=== PATIENT | male | born 1985 | race Caucasian/White ===

== ENCOUNTER 2021-11-06 21:04 | Emergency (ER) | payer OTHER ==
[2021-11-06] MEDS ORDERED: HYDROcod/ACET 5/325 Prepack 4 PO STA (21:26)
[2021-11-06] MEDS ORDERED: IBUPROFEN 800 MG TABLET PO STA (21:26)
--- NOTE | 2021-11-06 21:28 | ED Physician Documentation ---
PD HPI LOWER EXT INJURY - Stated complaint Stated Complaint: LT CALF INJ/POP - Chief complaint Chief Complaint: Ext Problem - History obtained from History obtained from: Patient - Additional information Additional information: 35-year-old gentleman was playing softball tonight. He started running towards for first base and felt a pop and now has severe pain in the medial left calf. No other injuries. He is able to walk and bear weight. Review of Systems Constitutional: reports: Reviewed and negative Eyes: reports: Reviewed and negative Ears: reports: Reviewed and negative Nose: reports: Reviewed and negative Cardiac: reports: Reviewed and negative Respiratory: reports: Reviewed and negative PD PAST MEDICAL HISTORY - Past Medical History Past Medical History: Yes Cardiovascular: None Respiratory: None Neuro: None Endocrine/Autoimmune: None GI: None : None HEENT: None Psych: None Musculoskeletal: None Derm: None - Past Surgical History Past Surgical History: Yes Ortho: Other - Present Medications Home Medications: Ambulatory Orders Medication Instructions Recorded Confirmed HYDROcod/ACETAM 5/325 [[place] 5/325] 1 - 2 tab PO Q6H PRN #10 tablet 11/06/21 Ibuprofen [Motrin] 800 mg PO Q8H PRN #14 tablet 11/06/21 - Allergies Allergies/Adverse Reactions: Allergies Allergy/AdvReac Type Severity Reaction Status Date / Time amoxicillin AdvReac Unknown Verified 11/06/21 21:23 Penicillins AdvReac Unknown Verified 11/06/21 21:23 - Social History Does the pt smoke?: No Smoking Status: Never smoker Does the pt drink ETOH?: No Does the pt have substance abuse?: No - Immunizations Immunizations are current?: Yes - POLST Patient has POLST: No PD ED PE NORMAL - Vitals Vital signs reviewed: Yes - General General: Alert and oriented X 3, No acute distress - Extremities Extremities: Other (Tenderness to the medial left calf consistent with muscle strain. Compartments are soft. Passive range of motion at the foot is painful but not out of proportion to exam. Achilles is nontender and he has normal Gonzalez's test.) - Neuro Neuro: Alert and oriented X 3, Normal speech Results - Vitals Vitals: Vital Signs - 24 hr 11/06/21 21:21 Temperature 36.2 C L Heart Rate 104 H Respiratory 17 Rate Blood Pressure 123/72 O2 Saturation 98 Oxygen O2 Source Room air PD MEDICAL DECISION MAKING - ED course ED course: 35-year-old gentleman with a left calf strain/partial rupture medially. No sign of compartment syndrome or Achilles rupture. Departure - Departure Disposition: 01 Home, Self Care Clinical Impression: Strain of left calf muscle Condition: Good Record reviewed to determine appropriate education?: Yes Instructions: ED Strain Muscle Ext Prescriptions: Ibuprofen [Motrin] 800 mg PO Q8H PRN #14 tablet PRN Reason: PAIN &/OR FEVER HYDROcod/ACETAM 5/325 [[place] 5/325] 1 - 2 tab PO Q6H PRN #10 tablet PRN Reason: Pain Comments: I sent your prescription electronically to the [facility] pharmacy. It is okay to walk and bear weight as tolerated. In addition we are giving you some pain medication. Take it easy for the next few days, bring your flight surgeon into the loop tomorrow. Return for new or worsening symptoms.
[2021-11-06 21:36] VITALS: BP 130/75
== END 2021-11-06 21:41 | disposition home or self-care (01) ==
LOC: ED 21:04
DX: S86.112A Strain of other muscle(s) and tendon(s) of posterior muscle group at lower leg level, left leg, initial encounter (principal); X50.9XXA Other and unspecified overexertion or strenuous movements or postures, initial encounter; Y93.02 Activity, running
CPT/HCPCS: 99282; 99283; A9270